=== PATIENT | male | born 1995 | race African-American/Black ===

== ENCOUNTER 2021-12-25 23:19 | Emergency (ER) | payer OTHER ==
[2021-12-25] MEDS ORDERED: LIDOCAINE HCL 1%, 10 MG/ML (20ML VIAL) ONE (23:33)
[2021-12-25] MEDS ORDERED: TETANUS AND DIPHTHERIA TOXOID 0.5 ML DISP.SYRIN IM ONE (23:35)
[2021-12-25] MEDS ORDERED: DIPHTH,PERTUSS(ACELL),TET 0.5 ML DISP.SYRIN IM ONE (23:45)
[2021-12-26 00:17] VITALS: BP 142/86; PULSE 88; RESP 16; TEMP 98.6; BMI 25.5
== END 2021-12-26 00:50 | disposition home or self-care (01) ==
LOC: JER 23:19
PROC: 3E0234Z Introduction of Serum, Toxoid and Vaccine into Muscle, Percutaneous Approach (ICD-10-PCS; principal; 2021-12-25)
DX: S51.032A Puncture wound without foreign body of left elbow, initial encounter (principal); X99.1XXA Assault by knife, initial encounter
CPT/HCPCS: 73070-TC-LT-FY; 73090-TC-LT-FY; 99283-25